=== PATIENT | male | born 1995 | race Caucasian/White ===

== ENCOUNTER 2021-03-15 13:08 | Emergency (ER) | payer MEDICAID ==
[~2021-03-15] VITALS: Ht 175.3 cm; Wt 59.0 kg
[2021-03-15 13:10] VITALS: BP 142/80
--- NOTE | 2021-03-15 13:10 | NUR ---
25 Y MALE BIBA DUE TO SEZIURE THAT LASTED ABOUT 1-2 MINUTES IN THE FIELD. PER MEDICS TONIC CLONIC SEZIURE WAS WITNESSED IN THE FIELD. UPON ASSESSMENT PT HAS +ORAL TRAUMA AND +URINARY INCONTIENCE. PT MEDICATED IN FIELD WITH 5MG IVP. CURRENT GCS IS 8. HEMATOMA NOTED ON R SIDE OF PATIENT HEAD AT THIS TIEM. SKIN DRY AND INTACT AT THIS TIME, AND PT CURRENTLY A&OX4. PT ALTERED AT THIS TIME. PT PLACED ON PACKAGING OPERATOR AND PUT INTO GOWN BEDSIDE PMH: DRUG USE, ETOH, AND WITHDRAWL SEZIURES NKA
[2021-03-15] MEDS ORDERED: ONDANSETRON 4 MG/2 ML VIAL IVP ONE (13:25)
[2021-03-15] MEDS ORDERED: NACL 0.9% 1,000 ML IV SCH (13:25)
--- NOTE | 2021-03-15 13:28 | NUR ---
XRAY AT PATIENT BEDSIDE
[2021-03-15] MEDS ORDERED: LORazepam 2 MG/ML VIAL ONE (13:48)
[2021-03-15] MEDS ORDERED: LORazepam 2 MG/ML VIAL IVP ONE (13:50)
[2021-03-15] MEDS ORDERED: LORazepam 2 MG/ML VIAL IM/IVP ONE (14:00)
--- NOTE | 2021-03-15 14:05 | NUR ---
PT TAKEN TO CT VIA [facility]
--- NOTE | 2021-03-15 14:14 | NUR ---
PT RETURNED TO BED [address] [facility] [facility]
--- NOTE | 2021-03-15 14:16 | NUR ---
RT BEDSIDE COLLECTING ABG BLOODWORK
[2021-03-15] MEDS ORDERED: INTUBATION KIT MC ONE (14:23)
[2021-03-15] MEDS ORDERED: SUCCINYLCHOLINE CHLORIDE 200 MG/10 ML VIAL IVP ONE (14:25)
[2021-03-15] MEDS ORDERED: ETOMIDATE 20 MG/10 ML VIAL IVP ONE (14:25)
[2021-03-15 14:33] LABS: HEMATOCRIT 33.8 % (36-52); MEAN CORPUSCULAR HEMOGLOBIN 32 pg (27-31); MEAN CORPUSCULAR HGB CONC 33 g/dL (33-37); MEAN CORPUSCULAR VOLUME 98.1 fL (80-94); PLATELET COUNT (AUTO) 120 K/uL (140-450); RED BLOOD CELL COUNT(AUTO) 3.44 MIL/uL (4.20-6.10); RED CELL DISTRIBUTION WIDTH 14.9 % (11.6-13.7); WHITE BLOOD COUNT (AUTO) 16.4 K/uL (4.8-10.8)
[2021-03-15] MEDS: PROPOFOL 1000 MG/100 ML PREMIX 100 ML IV ONE ×2 (14:40→15:08)
--- NOTE | 2021-03-15 14:40 | NUR ---
PT INTUABED BEDSIDE BY ER MD DR. HARPER. 7.5 TUBE USED AND AT 25. PT STARTED ON PROPOFOL DRIP AT THIS TIME
--- NOTE | 2021-03-15 14:45 | NUR ---
# 16 FR NG tube placed to R nare. Placement checked by auscultation of instilled air into stomach and aspiration of gastric contents. Tubing taped in place to prevent dislodging. Patient tolerated WELL.
--- NOTE | 2021-03-15 14:45 | NUR ---
# 16 FR Urinary catheter inserted utilizing sterile technique. Immediate return of 20 ml YELLOW urine noted. Urine sample collected and sent to lab. Pt tolerated procedure WELL.
--- NOTE | 2021-03-15 14:45 | NUR ---
ARRIVED TO FIND PATIENT WITH SNORING RESP. AFTER HEAD CT DECISION TO INTUBATE WAS MADE BY ER DR. PT INTUBATED WITH A 7.5 @25 AT THE TEETH. EQUAL AND BILATERAL BREATH SOUNDS HEARD. COLOR CHANGED NOTED ON EZ PACK. PT PLACED ON VENT NO DISTRESS NOTED.
[2021-03-15 14:51] LABS: PROTHROMBIN TIME 10.2 secs (10.8-13.4)
--- NOTE | 2021-03-15 14:58 | NUR ---
PT CONTINUES TO MATA ET TUBE AT THIS TIME. PROPOFOL DRIP INCREASED AND ER MD HARPER MADE AWARE. GIVEN MD ORDER TO INCREASE PROPOFOL DRIP NEEDED.
[2021-03-15] MEDS ORDERED: MIDAZOLAM MDV 50 MG in NACL 0.9% 40 ML IV PRN (15:05)
[2021-03-15] MEDS ORDERED: MIDAZOLAM 5 MG/5 ML VIAL IV ONE (15:05)
[2021-03-15 15:06] LABS: ANION GAP 30.8 (8-16); CARBON DIOXIDE 13.8 mmol/L (21-32); CREATININE 1.1 mg/dL (0.6-1.3); POTASSIUM 4.6 mmol/L (3.5-5.1); TOTAL BILIRUBIN 0.3 mg/dL (0.0-1.0)
[2021-03-15 15:10] LABS: SALICYLATE < 2.8 mg/dL (2.8-20.0)
[2021-03-15 15:11] LABS: ACETAMINOPHEN < 0.5 ug/ml (10-30)
[2021-03-15] MEDS ORDERED: NACL 0.9% 1,000 ML IV ONE (15:20)
[2021-03-15 15:23] LABS: LYMPHOCYTES % (MANUAL) 1 % (20-46); MONOCYTES % (MANUAL) 1 % (5-12)
[2021-03-15 15:24] LABS: PROMYELOCYTES % 1 % (0-0)
[2021-03-15] MEDS ORDERED: NACL 0.9% IV PRN (15:25)
[2021-03-15] MEDS ORDERED: MIDAZOLAM 5 MG/1 ML VIAL IV ONE (15:25)
[2021-03-15] MEDS ORDERED: MIDAZOLAM IV PRN (15:25)
[2021-03-15] MEDS ORDERED: MIDAZOLAM MDV 100 MG in NACL 0.9% 80 ML IV PRN (15:26)
[2021-03-15 15:34] LABS: APPEARANCE,URINE CLEAR (CLEAR); BILIRUBIN,URINE NEGATIVE (NEGATIVE); BLOOD, URINE 2+ (NEGATIVE); COLOR,URINE YELLOW (YELLOW); LEUKOCYTE ESTERASE ,URINE TRACE (NEGATIVE); NITRITE, URINE NEGATIVE (NEGATIVE); PH,URINE 5.5 (5.0-9.0); UGLUCOSE NEGATIVE (NEGATIVE)
--- NOTE | 2021-03-15 15:40 | NUR ---
DR. HARPER BEDSIDE INSERTING CENTRAL LINE TO PATIENT R FEMORAL AT THIS TIME
[2021-03-15 15:44] LABS: BARBITURATE, URINE NEGATIVE ng/ml (NEG <=200); BENZODIAZEPINE, URINE NEGATIVE ng/mL (NEG <=200); CANNABINOID, URINE NEGATIVE ng/mL (NEG <=50); COCAINE, URINE NEGATIVE ng/mL (NEG <=300); OPIATE, URINE NEGATIVE ng/mL (NEG <=2000); PHENCYCLIDINE SCREEN,URINE NEGATIVE ng/mL (NEG <=25)
--- NOTE | 2021-03-15 16:00 | NUR ---
PT CURRENT RECTAL TEMP 1007.3. PT STRIPPED OF LINEN AND COVERED WITH COOL TOWELS AND ICE PACKS Addendum: 03/15/21 at 1828 by [email or web address] RECTAL TEMP 107.3
[2021-03-15] MEDS ORDERED: ACETAMINOPHEN 650 MG SUPP RC ONE ×2 (16:02→18:00)
--- NOTE | 2021-03-15 16:10 | NUR ---
Patient to be transferred to [facility]. Is being transferred due to HIGHER LEVEL OF CARE. Receiving facility has accepting physician and available space. ER physician has signed transfer form. Patient or responsible democrat has agreed to transfer and signed form. Patient belongings inventoried and will be sent with patient. Copy of nursing notes, lab reports, EKG, Physicians Orders and X-rays to be sent with patient. Report called to VIVI ZHANG at receiving facility. [facility] ambulance service has been called for transfer. ETA is 5 MIN.
--- NOTE | 2021-03-15 16:10 | NUR ---
MD ORDER GIVEN TO INCREASE PROPOFOL TO 100 MCG/KG/HR AT THIS TIME. PER DR. HARPER GIVEN ORDER TO START VERSED AT 2MG/HR TO BRING PATIENT TO RAAS OF -2.
[2021-03-15] MEDS ORDERED: levETIRAcetam 100 MG/ML VIAL IV ONE ×2 (16:20→16:21)
[2021-03-15 16:30] VITALS: BP 137/80
--- NOTE | 2021-03-15 16:30 | NUR ---
[facility] HAS LEFT WITH PATIENT TO [facility] AT THIS TIME
--- NOTE | 2021-03-15 16:30 | NUR ---
[facility] ARRIVED FOR PATIENT, PATIENT WAS PLACED ON TRANSPORT LTV - PT TOLERATED EXCHANGE TO [facility].
--- NOTE | 2021-03-15 16:40 | NUR ---
SEE IV SPREADSHEET FOR UPDATED VITALS ON PATIENT ER VISIT
== END 2021-03-15 16:02 | disposition short-term general hospital (02) ==
LOC: MED 13:08
DX: R56.9 Unspecified convulsions (principal); R51.9 Headache, unspecified
CPT/HCPCS: 31500; 36415; 36556; 36600; 70450; 71045; 80053; 80305; 81001; 82550; 82553; 82803; 83605; 83880; 84484; 85025; 85610; 85730; 87040; 93005; 96361; 96365; 96366; 96375; 96376; 99291; G0480; G0482; J0330; J1953; J2060; J2250; J2405; J2704; J3490; J7030; J7060; Q0092; 96374; 99285

== ENCOUNTER 2022-06-02 14:25 | Emergency (ER) | payer MEDICAID ==
[~2022-06-02] VITALS: Ht 177.8 cm; Wt 77.1 kg
[2022-06-02] MEDS ORDERED: NACL 0.9% 1,000 ML IV ONE (14:40)
--- NOTE | 2022-06-02 14:40 | NUR ---
PT PLACED IN [facility]
[2022-06-02 14:41] VITALS: BP 130/88
--- NOTE | 2022-06-02 15:28 | NUR ---
IV removed, catheter intact and site benign. Applied folded 4x4 gauze and tape to stop bleeding.
--- NOTE | 2022-06-02 15:28 | NUR ---
PT AMBULATING WITH STEADY GAIT, STATES HE WANTS TO LEAVE AT THIS TIME "I WANT TO GO BACK TO [facility]".
[2022-06-02 18:29] LABS: EOSINOPHILS % (AUTO) 0.2 % (0.0-4.0); HEMATOCRIT 40.2 % (36-52); HEMOGLOBIN 13.9 g/dL (12.0-18.0); LYMPHOCYTES # (AUTO) 1.3 K/uL (2.0-11.5); LYMPHOCYTES % (AUTO) 33.5 % (20.5-51.1); MEAN CORPUSCULAR HEMOGLOBIN 32 pg (27-31); MEAN CORPUSCULAR HGB CONC 35 g/dL (33-37); MEAN CORPUSCULAR VOLUME 92.8 fL (80-94); MONOCYTES # (AUTO) 0.2 K/uL (0.8-1.0); MONOCYTES % (AUTO) 4.4 % (1.7-9.3); NEUTROPHILS # (AUTO) 2.4 K/uL (1.8-7.7); NEUTROPHILS % (AUTO) 60.9 % (42.2-75.2); PLATELET COUNT (AUTO) 343 K/uL (140-450); RED BLOOD CELL COUNT(AUTO) 4.34 MIL/uL (4.20-6.10); RED CELL DISTRIBUTION WIDTH 13.1 % (11.6-13.7); WHITE BLOOD COUNT (AUTO) 3.9 K/uL (4.8-10.8)
[2022-06-02 19:02] LABS: ALBUMIN 3.4 g/dL (3.4-5.0); ANION GAP 14.1 (8-16); ASPARTATE AMINOTRANSFERASE 115 U/L (15-37); CHLORIDE 109 mmol/L (98-107); CREATININE 0.7 mg/dL (0.6-1.3); GFR ARICAN-AMERICAN 173 mL/min (>90); GLUCOSE 106 mg/dL (74-106); POTASSIUM 4.1 mmol/L (3.5-5.1); SODIUM SERUM 148 mmol/L (136-145); TOTAL BILIRUBIN 0.2 mg/dL (0.0-1.0); UREA NITROGEN, BLOOD 9 mg/dL (7-18)
[2022-06-02 19:06] LABS: SALICYLATE < 2.8 mg/dL (2.8-20.0)
[2022-06-02 19:08] LABS: ACETAMINOPHEN < 0.5 ug/ml (10-30)
--- NOTE | 2022-06-02 19:09 | NUR ---
19:00 PATIENT SEEN WALKING OUT.
== END 2022-06-02 18:25 | disposition left against medical advice (07) ==
LOC: EDBD 14:25 → MED 14:25
DX: F10.129 Alcohol abuse with intoxication, unspecified (principal); Y90.8 Blood alcohol level of 240 mg/100 ml or more
CPT/HCPCS: 36415; 70450; 71045; 80053; 82550; 84484; 85025; 99285; G0480; G0482

== ENCOUNTER 2022-06-02 17:17 | Emergency (ER) | payer MEDICAID ==
[~2022-06-02] VITALS: Ht 170.2 cm; Wt 72.6 kg
[2022-06-02 18:17] VITALS: BP 100/64
--- NOTE | 2022-06-02 18:22 | NUR ---
refused iv start with paramedics and staff.
--- NOTE | 2022-06-02 19:10 | NUR ---
PT AMBULATED AND SAID HE WAS GOING TO THE RESTROOM, STEADY GAIT AND INDEPENDENT. LATER SEEN WALKING OUT THROUGH LOBBY DOORS WITH STEADY GAIT
== END 2022-06-02 19:10 | disposition left against medical advice (07) ==
LOC: MED 17:17
DX: F10.129 Alcohol abuse with intoxication, unspecified (principal); Z53.21 Procedure and treatment not carried out due to patient leaving prior to being seen by health care provider; Y90.9 Presence of alcohol in blood, level not specified
CPT/HCPCS: 99281